=== PATIENT | female | born 1955 | race African-American/Black ===

== ENCOUNTER 2016-08-28 12:04 | Emergency (ER) | payer OTHER ==
[2016-08-28 12:13] VITALS: BP 140/82; PULSE 83; TEMP 98; BMI 28.3
--- NOTE | 2016-08-28 12:58 | PDOC ---
History of Present Illness - General Chief Complaint: Cold Symptoms Stated Complaint: COLD SYMP/COUGH Time Seen by Provider: 08/28/16 12:30 History Source: Patient Exam Limitations: No Limitations - History of Present Illness Initial Comments: 08/28/16 12:52 Chief complaint: Persistent cough 2 weeks runny nose History of present illness: Patient is a 60-year-old female with a history of anemia, hyper lipidemia, hypertension, sleep apnea, bipolar depression, here today complaining of a persistent cough 2 weeks with white phlegm. Patient also reports having clear rhinorrhea. Patient denies any shortness of breath, wheezing, difficulty swallowing or breathing. Patient reports that cough is annoying keeps her up at night. Timing/Duration: intermittent (for last 2 weeks ) Severity: mild Associated Symptoms: reports: cough (productive white for 2 weeks ), loss of appetite, other (rhinorrhea ) Past History - Past Medical History Allergies/Adverse Reactions: Allergies Allergy/AdvReac Type Severity Reaction Status Date / Time No Known Allergies Allergy Verified 08/28/16 12:13 Home Medications: Ambulatory Orders Azithromycin [Zithromax 250mg Tablets -] 250 mg PO UTDICT #6 tab 08/28/16 Fexofenadine HCl [Lavern Allergy] 180 mg PO DAILY #7 tablet 08/28/16 Guaifenesin [Mucinex] 600 mg PO Q12H PRN #10 tab.er.12h 08/28/16 Anemia: Yes HTN: Yes Hypercholesterolemia: Yes Psychiatric Problems: Yes (bipolar, depression ) Thyroid Disease: Yes Other medical history: SLEEP APNEA - Psycho/Social/Smoking Cessation Hx Anxiety: No Suicidal Ideation: No Smoking History: Never smoked Hx Alcohol Use: No Drug/Substance Use Hx: No Substance Use Type: None Review of Systems - Review of Systems Able to Perform ROS?: Yes Constitutional: Yes: Loss of Appetite HEENTM: Yes: Nose Congestion (with rhinorrhea) Respiratory: Yes: Productive cough (white for 2 weeks ). No: Shortness of Breath, SOB with Exertion, SOB at Rest, Stridor, Wheezing Cardiac (ROS): No: Symptoms Reported ABD/GI: No: Symptoms Reported : No: Symptoms Reported Integumentary: No: Symptoms Reported Neurological: No: Symptoms reported *Physical Exam - Vital Signs Last Vital Signs Temp Pulse Resp BP Pulse Ox 98.0 F 83 20 140/82 97 08/28/16 12:10 08/28/16 12:10 08/28/16 12:10 08/28/16 12:10 08/28/16 12:10 - Physical Exam General Appearance: Yes: Appropriately Dressed HEENT: positive: TMs Normal, Nasal Congestion, Rhinorrhea (clear b/l ). negative: Pharyngeal Erythema, Tonsillar Exudate, Tonsillar Erythema Neck: negative: Lymphadenopathy (R), Lymphadenopathy (L) Respiratory/Chest: positive: Lungs Clear, Normal Breath Sounds. negative: Chest Tender, Respiratory Distress Cardiovascular: positive: Regular Rhythm, Regular Rate, S1, S2 Integumentary: positive: Normal Color Neurologic: positive: Alert, Normal Response, Responsive Medical Decision Making - Medical Decision Making 08/28/16 12:53 Patient is a 60-year-old female with a history of anemia, hyper lipidemia, hypertension, sleep apnea, bipolar depression, here today complaining of a persistent cough 2 weeks with white phlegm. Patient also reports having clear rhinorrhea. Patient denies any shortness of breath, wheezing, difficulty swallowing or breathing. Patient reports that cough is annoying keeps her up at night. bronchitis nasal congestion with rhinorrhea PLAN: Azithromycin 250 mg 2 tabs today then 1 tab daily for following 4 days Lavern 180 mg daily 7 days Mucinex 1 tab q 12 hr prn cough for 5 days *DC/Admit/Observation/Transfer Diagnosis at time of Disposition: Bronchitis, Bronchitis, Rhinorrhea - Discharge Dispostion Disposition: HOME Condition at time of disposition: Stable - Patient Instructions Additional Instructions: follow up with Your primary care provider within the next few days Return to emergency room if any difficulty breathing or any new symptoms develop Drink a lot a fluids and rest Patient voiced understanding of discharge instructions and all questions were answered
== END 2016-08-28 13:05 | disposition home or self-care (01) ==
LOC: JERFT 12:04
DX: J40 Bronchitis, not specified as acute or chronic (principal); J34.89 Other specified disorders of nose and nasal sinuses; I10 Essential (primary) hypertension; F31.9 Bipolar disorder, unspecified; E78.5 Hyperlipidemia, unspecified; D64.9 Anemia, unspecified
CPT/HCPCS: 99281-25